=== PATIENT | male | born 1975 | race Two or more races ===

== ENCOUNTER 2022-04-22 14:52 | Emergency (ER) | payer OTHER ==
[~2022-04-22] VITALS: Ht 177.8 cm; Wt 68.0 kg
== END 2022-04-22 19:37 | disposition home or self-care (01) ==
LOC: ER 14:52
DX: S20.219A Contusion of unspecified front wall of thorax, initial encounter (principal); S30.0XXA Contusion of lower back and pelvis, initial encounter; X58.XXXA Exposure to other specified factors, initial encounter; Y93.9 Activity, unspecified; Y92.9 Unspecified place or not applicable